=== PATIENT | male | born 2005 | race Hispanic/Latino ===

== ENCOUNTER 2023-01-11 23:23 | Emergency (ER) | payer SELFPAY ==
[~2023-01-11] VITALS: Ht 200.7 cm; Wt 100.0 kg
[2023-01-12] MEDS ORDERED: IBUPROFEN600 MG PO (00:09)
[2023-01-12] MEDS ORDERED: AMOX/K CLAV875 M1 PO (00:09)
[2023-01-12 00:50] VITALS: BP 121/78
== END 2023-01-12 00:50 | disposition home or self-care (01) | DRG 153 ==
LOC: ED 23:23
DX: H66.92 Otitis media, unspecified, left ear (principal); H72.92 Unspecified perforation of tympanic membrane, left ear